=== PATIENT | female | born 1980 | race Caucasian/White ===

== ENCOUNTER 2019-05-08 14:17 | Emergency (ER) | payer OTHER ==
[~2019-05-08] VITALS: Ht 160 cm; Wt 57.6 kg
[2019-05-08 14:54] LABS: ABSOLUTE BASOPHILS 0.1 thou/uL (0.0-0.2); ABSOLUTE EOSINOPHILS 0.1 thou/uL (0.0-0.7); ABSOLUTE LYMPHOCYTES 1.8 thou/uL (0.8-5.3); ABSOLUTE MONOCYTES 0.5 thou/uL (0.0-1.2); ABSOLUTE NEUTROPHILS 4.7 thou/uL (1.6-8.1); HEMATOCRIT 40.4 % (37.0-47.0); LYMPHOCYTES 24.2 %; MCH 32.2 pg (26.0-34.0); MCHC 34.7 g/dL (28.0-37.0); MCV 92.9 fL (80.0-100.0); MONOCYTES 7.3 %; MPV 10.3 fl. (7.2-11.1); NUCLEATED RBCS 0 /100WBC; PLATELET COUNT* 248 thou/uL (150-400); POLYS 65.5 %; RBC 4.34 mil/uL (4.20-5.00); RDW-CV 13.1 % (10.5-14.5); WBC 7.2 thou/uL (4.0-11.0)
[2019-05-08 15:14] LABS: CALCIUM 8.9 mg/dL (8.5-10.1); CREATININE 0.7 mg/dL (0.6-1.3); INR 1.1; POTASSIUM 3.7 mmol/L (3.5-5.1); PROTIME 10.9 Seconds (9.20-11.50)
[2019-05-08 15:24] LABS: ALBUMIN 4.3 g/dL (3.4-5.0); TOTAL BILIRUBIN 0.4 mg/dL (<0.1-1.0); TOTAL PROTEIN 7.5 g/dL (6.4-8.2)
[2019-05-08 16:39] VITALS: BP 101/60
--- NOTE | 2019-05-09 09:11 | EKG ---
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: : 1980 Requested By: Haris Lazaro Order Number: [id number] MD: Spenser Caldwell Measurements Intervals [place] Rate: 77 P: 58 KS: 173 QRS: 65 QRSD: 106 T: 54 QT: 406 QTc: 460 Interpretive Statements Sinus rhythm Probable left atrial enlargement RSR' in V1 or V2, right VCD or RVH No previous ECG available for comparison Electronically Signed On 05-09-2019 9:10:09 CDT by Spenser Caldwell [email or web address] <ELECTRONICALLY SIGNED> By: Spenser Caldwell MD, [facility] 05/09/19 0910 1425 142 Spenser Caldwell MD, [facility] /EPI
== END 2019-05-08 16:39 | disposition home or self-care (01) ==
LOC: M.ERS 14:17
PROVIDERS: Emergency Medicine
DX: R07.89 Other chest pain (principal)